=== PATIENT | female | born 1960 | race Caucasian/White ===

== ENCOUNTER 2017-11-01 13:21 | Observation (INO) | payer BC ==
[~2017-11-01] VITALS: Ht 166.4 cm; Wt 75.9 kg
[2017-11-01 13:52] VITALS: BP 155/89; PULSE 82; RESP 16; TEMP 97.8; O2SAT 100
[2017-11-01] MEDS ORDERED: LEVO137T18 PO (14:21)
[2017-11-01] MEDS ORDERED: ASPIRIN 325 MG TAB PO ONE (14:30)
[2017-11-01] MEDS ORDERED: NITROGLYCERIN 0.4 MG SL 25 TABS/BTL SL ONE (14:30)
[2017-11-01] MEDS ORDERED: SODIUM CHLORIDE 0.9% FLUSH 10 ML FLUSH IVF PRN (14:30)
[2017-11-01 14:46] LABS: AUTOMATED NEUTROPHIL # 4.5 TH/MM3 (1.8-7.7); BASOPHIL # 0.1 TH/MM3 (0-0.2); BASOPHIL % 0.8 % (0.0-2.0); EOSINOPHIL # 0.4 TH/MM3 (0-0.4); HEMATOCRIT 41.3 % (35.0-46.0); HEMOGLOBIN 13.7 GM/DL (11.6-15.3); LYMPHOCYTE # 1.9 TH/MM3 (1.0-4.8); MEAN CELL VOLUME 87.5 FL (80.0-100.0); MEAN CORPUSCULAR HGB CONC 33.1 % (32.0-36.0); MEAN PLATELET VOLUME 8.1 FL (7.0-11.0); MONO % 8.5 % (0.0-8.0); MONOCYTE # 0.6 TH/MM3 (0-0.9); NEUT % 60.7 % (16.0-70.0); PLATELET COUNT 331 TH/MM3 (150-450); RED BLOOD COUNT 4.72 MIL/MM3 (4.00-5.30); RED CELL DISTRIBUTION WIDTH 12.4 % (11.6-17.2); WHITE BLOOD COUNT 7.5 TH/MM3 (4.0-11.0)
[2017-11-01 14:51] LABS: CHLORIDE 103 MEQ/L (98-107); SODIUM (NA) 139 MEQ/L (136-145)
[2017-11-01 14:54] LABS: INTERNATIONAL NORMALIZED RATIO 1.1 RATIO; PROTHROMBIN TIME - PATIENT 10.8 SEC (9.8-11.6)
[2017-11-01 14:55] VITALS: BP 115/66; PULSE 78; RESP 16; O2SAT 97
[2017-11-01 14:55] LABS: ALBUMIN 3.9 GM/DL (3.4-5.0); BICARBONATE 29.3 MEQ/L (21.0-32.0); BLOOD UREA NITROGEN 15 MG/DL (7-18); GLUCOSE,RANDOM 84 MG/DL (74-106); MAGNESIUM 2.3 MG/DL (1.5-2.5)
[2017-11-01 14:57] LABS: ALT (GPT) 23 U/L (10-53); AST (GOT) 19 U/L (15-37)
[2017-11-01 14:58] LABS: CREATININE 0.84 MG/DL (0.50-1.00); GLOMERULAR FILTRATION RATE 70 ML/MIN (>89)
[2017-11-01 14:59] LABS: TOTAL BILIRUBIN ADULT 0.2 MG/DL (0.2-1.0); TOTAL PROTEIN 8.2 GM/DL (6.4-8.2)
[2017-11-01 15:00] LABS: ALKALINE PHOSPHATASE 64 U/L (45-117)
[2017-11-01 15:03] LABS: TROPONIN I LESS THAN 0.02 NG/ML (0.02-0.05)
[2017-11-01] MEDS ORDERED: IOHEXOL 350 MG/ML 10 ML VIAL (for RAD DIAG) IVCONTRAST ONE (15:22)
--- NOTE | 2017-11-01 15:29 | RADRPT ---
EXAM DATE/TIME: 11/01/2017 14:47 [facility] COMPARISON: No previous studies available for comparison. INDICATIONS : Chest pain MEDICAL HISTORY : None. SURGICAL HISTORY : None. ENCOUNTER: Initial ACUITY: 2 days PAIN SCORE: 2/10 LOCATION: Left chest FINDINGS: PA and lateral views of the chest demonstrate the lungs to be symmetrically aerated without evidence of mass, infiltrate or effusion. The cardiomediastinal contours are unremarkable. Osseous structure s are intact. CONCLUSION: 1. No acute cardiopulmonary disease. Anshul Orr MD on November 01, 2017 at 15:27 Board Certified Radiologist. This report was verified electronically.
--- NOTE | 2017-11-01 15:30 | RADRPT ---
EXAM DATE/TIME: 11/01/2017 15:11 [facility] COMPARISON: No previous studies available for comparison. INDICATIONS : Left chest pain x 2 days. IV CONTRAST: 75 cc Omnipaque 350 (iohexol) IV RADIATION DOSE: 10.54 CTDIvol (mGy) MEDICAL HISTORY : None SURGICAL HISTORY : Tubal ligation. ENCOUNTER: Initial ACUITY: 2 days PAIN SCALE: 2/10 LOCATION: Left chest TECHNIQUE: Volumetric scanning of the chest was performed using a pulmonary embolism protocol MIP images were re constructed. Using automated exposure control and adjustment of the mA and/or kV according to patien t size, radiation dose was kept as low as reasonably achievable to obtain optimal diagnostic quality images. DICOM format image data is available electronically for review and comparison. Follow-up recommendations for detected pulmonary nodules are based at a minimum on nodule size and pa tient risk factors according to Fleischner Society Guidelines. FINDINGS: PULMONARY ARTERIES: No filling defects are seen in the pulmonary arteries through the segmental level. LUNGS: There is no consolidation or pneumothorax . No concerning pulmonary nodule is visualized. PLEURAE: There is no pleural thickening or pleural effusion. MEDIASTINUM: There is good visualization of the great vessels of the middle mediastinum. No evidence of mediastin al or hilar adenopathy/mass. MUSCULOSKELETAL: Within normal limits for patient age. CONCLUSION: No evidence of pulmonary embolism Girma Tamez MD on November 01, 2017 at 15:25 Board Certified Radiologist. This report was verified electronically.
--- NOTE | 2017-11-01 16:02 | PD ---
HPI Chief Complaint: Chest Pain Time Seen by Provider: 14:03 Travel History International Travel<30 days: No Contact w/Intl Traveler<30days: No Traveled to known affect area: No History of Present Illness HPI The patient is a 57-year-old female who arrives to the ER with chest pain about 2 days duration which started shortly following arrival here after a drive from [place]. Driving from [place] be here in 1 day. There is a pleuritic component the location is predominantly in the left side of the pain severity is very mild about 2/10 dull quality at baseline which becomes sharp with inspiration. She denies dyspnea on exertion chest pain on exertion. There is some discomfort radiating to the left neck. There is a family history coronary artery disease. No personal history of smoking, hypertension, hyperlipidemia or diabetes is reported. No personal history of coronary artery disease reported. PFSH Past Medical History Medical other: Yes (sinus surgery) Tetanus Vaccination: < 5 Years Influenza Vaccination: No ?: Not Tubal Ligation: Yes Social History Alcohol Use: Yes (4x a week) Tobacco Use: No Allergies-Medications (Allergen,Severity, Reaction): Coded Allergies: No Known Allergies (Unverified , 11/01/17) Reported Meds & Prescriptions Reported Meds & Active Scripts Active Reported Levoxyl (Levothyroxine Sodium) 137 Mcg Tab 137 Mcg PO DAILY Review of Systems Except as stated in HPI: all other systems reviewed are Neg General / Constitutional: No: Fever Eyes: No: Diploplia HENT: No: Headaches Physical Exam Narrative GENERAL: 57-year-old female pleasant well-nourished well-developed no acute distress Vital Signs Date Time Temp Pulse Resp B/P (MAP) Pulse Ox O2 Delivery O2 Flow Rate FiO2 11/01/17 13:52 97.8 82 16 155/89 (111) 100 SKIN: Warm and dry. HEAD: Atraumatic. Normocephalic. EYES: Pupils equal and round. No scleral icterus. No injection or drainage. ENT: No nasal bleeding or discharge. Mucous membranes pink and moist. NECK: Trachea midline. No JVD. CARDIOVASCULAR: Regular rate and rhythm. RESPIRATORY: No accessory muscle use. Clear to auscultation. Breath sounds equal bilaterally. GASTROINTESTINAL: Abdomen soft, non-tender, nondistended. Hepatic and splenic margins not palpable. MUSCULOSKELETAL: Extremities without clubbing, cyanosis, or edema. No obvious deformities. No evidence DVT. NEUROLOGICAL: Awake and alert. No obvious cranial nerve deficits. Motor grossly within normal limits. Five out of 5 muscle strength in the arms and legs. Normal speech. PSYCHIATRIC: Appropriate mood and affect; insight and judgment normal. Data Data Last Documented VS Vital Signs Date Time Temp Pulse Resp B/P (MAP) Pulse Ox O2 Delivery O2 Flow Rate FiO2 11/01/17 13:52 97.8 82 16 155/89 (111) 100 Orders Orders Electrocardiogram (11/01/17 14:20) Ckmb (Isoenzyme) Profile (11/01/17 14:20) Complete Blood Count With Diff (11/01/17 14:20) Comprehensive Metabolic Panel (11/01/17 14:20) Magnesium (Mg) (11/01/17 14:20) Prothrombin Time / Inr (Pt) (11/01/17 14:20) Act Partial Throm Time (Ptt) (11/01/17 14:20) Troponin I (11/01/17 14:20) Lipase (11/01/17 14:20) Ecg Monitoring (11/01/17 14:20) Iv Access Insert/Monitor (11/01/17 14:20) Oximetry (11/01/17 14:20) Oxygen Administration (11/01/17 14:20) Aspirin (Aspirin) (11/01/17 14:30) Sodium Chloride 0.9% Flush (Ns Flush) (11/01/17 14:30) Nitroglycerin Sl (Nitrostat Sl) (11/01/17 14:30) Ct Pulmonary Angiogram (11/01/17 14:20) Chest, Pa & Lat (11/01/17 14:20) Iohexol 350 Inj (Omnipaque 350 Inj) (11/01/17 15:22) Admit Order (Ed Use Only) (11/01/17 ) Hand Rug Braider / Telemetry LORENA.Q8H (11/01/17 15:57) Vital Signs (Adult) Q4H (11/01/17 15:57) Diet Heart Healthy (11/01/17 Dinner) Activity Bed Rest (11/01/17 15:57) Notify Dr: Other (11/01/17 15:57) Labs Laboratory Tests Test 11/01/17 14:32 White Blood Count 7.5 TH/MM3 Red Blood Count 4.72 MIL/MM3 Hemoglobin 13.7 GM/DL Hematocrit 41.3 % Mean Corpuscular Volume 87.5 FL Mean Corpuscular Hemoglobin 29.0 PG Mean Corpuscular Hemoglobin Concent 33.1 % Red Cell Distribution Width 12.4 % Platelet Count 331 TH/MM3 Mean Platelet Volume 8.1 FL Neutrophils (%) (Auto) 60.7 % Lymphocytes (%) (Auto) 25.0 % Monocytes (%) (Auto) 8.5 % Eosinophils (%) (Auto) 5.0 % Basophils (%) (Auto) 0.8 % Neutrophils # (Auto) 4.5 TH/MM3 Lymphocytes # (Auto) 1.9 TH/MM3 Monocytes # (Auto) 0.6 TH/MM3 Eosinophils # (Auto) 0.4 TH/MM3 Basophils # (Auto) 0.1 TH/MM3 CBC Comment DIFF FINAL Differential Comment Prothrombin Time 10.8 SEC Prothromb Time International Ratio 1.1 RATIO Activated Partial Thromboplast Time 27.4 SEC Blood Urea Nitrogen 15 MG/DL Creatinine 0.84 MG/DL Random Glucose 84 MG/DL Total Protein 8.2 GM/DL Albumin 3.9 GM/DL Calcium Level 9.0 MG/DL Magnesium Level 2.3 MG/DL Alkaline Phosphatase 64 U/L Aspartate Amino Transf (AST/SGOT) 19 U/L Alanine Aminotransferase (ALT/SGPT) 23 U/L Total Bilirubin 0.2 MG/DL Sodium Level 139 MEQ/L Potassium Level 4.1 MEQ/L Chloride Level 103 MEQ/L Carbon Dioxide Level 29.3 MEQ/L Anion Gap 7 MEQ/L Estimat Glomerular Filtration Rate 70 ML/MIN Total Creatine Kinase 76 U/L Troponin I LESS THAN 0.02 NG/ML Lipase 236 U/L [facility] Medical Decision Making Medical Screen Exam Complete: Yes Emergency Medical Condition: Yes Differential Diagnosis NSTEMI, unstable angina, coronary vasospasm, PE, PTX, aortic dissection, pericarditis, myocarditis, endocarditis, PNA, esophageal disease, aneurysm, musculoskeletal etiologies, anxiety, cocaine/sympathomimetic abuse Narrative Course CBC & BMP Diagram 11/01/17 14:32 Total Protein 8.2, Albumin 3.9, Calcium Level 9.0, Magnesium Level 2.3, Alkaline Phosphatase 64, Aspartate Amino Transf (AST/SGOT) 19, Alanine Aminotransferase (ALT/SGPT) 23, Total Bilirubin 0.2 Troponin is less than 0.02 EKG: sinus, normal axis/intervals, rate 67, no ischemic injury pattern CXR: No acute process CT chest: no PE Patient will be Sure chest pain center protocol. Discussed with Dr. Roca. Diagnosis Primary Impression: Chest pain Qualified Codes: R07.9 - Chest pain, unspecified Admitting Information Admitting Physician Requests: Observation Tommy Argueta MD Nov 01, 2017 16:02
[2017-11-01] MEDS ORDERED: ACETAMINOPHEN 500 MG CPLT PO PRN (16:15)
[2017-11-01] MEDS ORDERED: SODIUM CHLORIDE 0.9% FLUSH 10 ML FLUSH IV FLUSH PRN (16:15)
[2017-11-01] MEDS ORDERED: ONDANSETRON HCL 4 MG/2 ML VIAL IV PUSH PRN (16:15)
--- NOTE | 2017-11-01 16:29 | HHI.HP ---
HPI Service [facility] Primary Care Physician Non-Staff Admission Diagnosis Chest Pain Diagnoses: (1) Chest pain Chief Complaint: Chest pain Travel History International Travel<30 Days: No Contact w/Intl Traveler <30 Da: No Traveled to Known Affected Are: No History of Present Illness This is a pleasant 57-year-old female patient with a known medical history of hypothyroidism who presented to the ED with complaints of chest pain. Patient states that on Monday her and her were driving down from [place] for a family vacation when dates the pain is located under her left breast, characterized as dull in nature at rest and sharp with movement and deep breathing, pain worsens as well with movement and deep breathing. Patient states the pain is a 2-3 out of 10 on pain scale, constant in nature, denies any associated symptoms such as nausea, vomiting, diaphoresis or shortness of breath, patient denies ever having this pain in the past. Patient denies any known alleviating factors. She did state she took some Advil without relief as well as some antacids. Patient denies any recent trauma to the area. Patient sees a PCP back in [place], with no new recent changes in medicines. 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 Denies any history of CAD or stress testing. Denies current tobacco use. Family medical history significant for brother having an AK at the age of 49 and father having an AK at the age of 55. Review of Systems Constitutional: DENIES: Fatigue, Fever, Chills Eyes: DENIES: Blurred vision, Diplopia Respiratory: DENIES: Cough Cardiovascular: COMPLAINS OF: Chest pain, DENIES: Palpitations Gastrointestinal: DENIES: Abdominal pain, Black stools, Bloody stools, Constipation, Diarrhea, Nausea, Vomiting Musculoskeletal: DENIES: Joint pain Psychiatric: DENIES: Anxiety Except as stated in HPI: all other systems reviewed are Neg Past Family Social History Past Medical History Hypothyroidism Past Surgical History Tubal ligation Unspecified sinus surgery Reported Medications Active Reported Levoxyl (Levothyroxine Sodium) 137 Mcg Tab 137 Mcg PO DAILY Allergies: Coded Allergies: No Known Allergies (Unverified , 11/01/17) Active Ordered Medications Current Medications Medications (Trade) Dose Ordered Sig/Emily Route Start Time Stop Time Status Last Admin (NS Flush) 2 ml UNSCH PRN IVF 11/01/17 14:30 (NS Flush) 2 ml UNSCH PRN IV FLUSH 11/01/17 16:15 (NS Flush) 2 ml BID IV FLUSH 11/01/17 21:00 (Tylenol) 500 mg Q4H PRN PO 11/01/17 16:15 (Zofran Inj) 4 mg Q6H PRN IV PUSH 11/01/17 16:15 Family History Family medical history significant for brother having an AK at the age of 49, paternal medical history significant for AK at the age of 55. Social History Patient denies any current or previous tobacco use. Admits to social alcohol use, denies any illicit drug use. Physical Exam Vital Signs Vital Signs Date Time Temp Pulse Resp B/P (MAP) Pulse Ox O2 Delivery O2 Flow Rate FiO2 11/01/17 13:52 97.8 82 16 155/89 (111) 100 Physical Exam GENERAL: Well-developed, well-nourished patient in NAD. SKIN: Warm and dry. No rash. HEAD: Normocephalic. Atraumatic. EYES: Pupils equal and round. No scleral icterus. No injection or drainage. ENT: No nasal bleeding or discharge. Mucous membranes pink and moist. NECK: Supple. Trachea midline. CARDIOVASCULAR: Regular rate and rhythm. S1, S2 noted. No murmur appreciated. No chest pain to palpation of left chest. RESPIRATORY: No accessory muscle use. Clear to auscultation. Breath sounds equal bilaterally. GASTROINTESTINAL: Abdomen soft, non-tender, nondistended. Normoactive bowel sounds x4. MUSCULOSKELETAL: No obvious deformities. Extremities without clubbing, cyanosis , or edema. NEUROLOGICAL: Awake and alert. No obvious cranial nerve deficits. Motor grossly within normal limits. 5/5 muscle strength in bilateral upper and lower extremities. Normal speech. PSYCHIATRIC: Appropriate mood and affect; insight and judgment normal. Laboratory Laboratory Tests Test 11/01/17 14:32 White Blood Count 7.5 Red Blood Count 4.72 Hemoglobin 13.7 Hematocrit 41.3 Mean Corpuscular Volume 87.5 Mean Corpuscular Hemoglobin 29.0 Mean Corpuscular Hemoglobin Concent 33.1 Red Cell Distribution Width 12.4 Platelet Count 331 Mean Platelet Volume 8.1 Neutrophils (%) (Auto) 60.7 Lymphocytes (%) (Auto) 25.0 Monocytes (%) (Auto) 8.5 Eosinophils (%) (Auto) 5.0 Basophils (%) (Auto) 0.8 Neutrophils # (Auto) 4.5 Lymphocytes # (Auto) 1.9 Monocytes # (Auto) 0.6 Eosinophils # (Auto) 0.4 Basophils # (Auto) 0.1 CBC Comment DIFF FINAL Differential Comment Prothrombin Time 10.8 Prothromb Time International Ratio 1.1 Activated Partial Thromboplast Time 27.4 Blood Urea Nitrogen 15 Creatinine 0.84 Random Glucose 84 Total Protein 8.2 Albumin 3.9 Calcium Level 9.0 Magnesium Level 2.3 Alkaline Phosphatase 64 Aspartate Amino Transf (AST/SGOT) 19 Alanine Aminotransferase (ALT/SGPT) 23 Total Bilirubin 0.2 Sodium Level 139 Potassium Level 4.1 Chloride Level 103 Carbon Dioxide Level 29.3 Anion Gap 7 Estimat Glomerular Filtration Rate 70 Total Creatine Kinase 76 Troponin I LESS THAN 0.02 Lipase 236 Result Diagram: 11/01/17 1432 11/01/17 1432 Imaging Last Impressions Chest X-Ray 11/01/171419 Signed Impressions: Service Date/Time: Wednesday, November 01, 2017 14:47 - CONCLUSION: 1. No acute cardiopulmonary disease. Anshul Orr MD CT Angiography 11/01/171419 Signed Impressions: Service Date/Time: Wednesday, November 01, 2017 15:11 - CONCLUSION: No evidence of pulmonary embolism Girma Tamez MD Septic Shock Reassessment Septic shock perfusion: reassessment completed Caprini VTE Risk Assessment Caprini VTE Risk Assessment: No/Low Risk (score <= 1) Caprini Risk Assessment Model Point Value = 1 Point Value = 2 Point Value = 3 Point Value = 5 Age 41-60 Minor surgery BMI > 25 kg/m2 Swollen legs Varicose veins or History of unexplained or recurrent spontaneous Oral contraceptives or hormone replacement Sepsis (< 1 month) Serious lung disease, including pneumonia (< 1 month) Abnormal pulmonary function Acute myocardial infarction Congestive heart failure (< 1 month) History of inflammatory bowel disease Medical patient at bed rest Age 61-74 Arthroscopic surgery Major open surgery (> 45 min) Laparoscopic surgery (> 45 min) Malignancy Confined to bed (> 72 hours) Immobilizing plaster cast Central venous access Age >= 75 History of VTE Family history of VTE Factor V Leiden Prothrombin [id number] Lupus anticoagulant Anticardiolipin antibodies Elevated serum homocysteine Heparin-induced thrombocytopenia Other congenital or acquired thrombophilia Stroke (< 1 month) Elective arthroplasty Hip, pelvis, or leg fracture Acute spinal cord injury (< 1 month) Prophylaxis Regimen Total Risk Factor Score Risk Level Prophylaxis Regimen 0-1 Low Early ambulation 2 Moderate Order ONE of the following: *Sequential Compression Device (SCD) *Heparin 5000 units SQ BID 3-4 Higher Order ONE of the following medications: *Heparin 5000 units SQ TID *Enoxaparin/Lovenox 40 mg SQ daily (WT < 150 kg, CrCl > 30 mL/min) *Enoxaparin/Lovenox 30 mg SQ daily (WT < 150 kg, CrCl > 10-29 mL/min) *Enoxaparin/Lovenox 30 mg SQ BID (WT < 150 kg, CrCl > 30 mL/min) AND/OR *Sequential Compression Device (SCD) 5 or more Highest Order ONE of the following medications: *Heparin 5000 units SQ TID (Preferred with Epidurals) *Enoxaparin/Lovenox 40 mg SQ daily (WT < 150 kg, CrCl > 30 mL/min) *Enoxaparin/Lovenox 30 mg SQ daily (WT < 150 kg, CrCl > 10-29 mL/min) *Enoxaparin/Lovenox 30 mg SQ BID (WT < 150 kg, CrCl > 30 mL/min) AND *Sequential Compression Device (SCD) Assessment and Plan Problem List: (1) Chest pain ICD Code: R07.9 - Chest pain, unspecified Status: Acute (2) Hypothyroidism ICD Code: E03.9 - Hypothyroidism, unspecified Assessment and Plan This is a pleasant 57-year-old female patient with a known medical history of hypothyroidism who presented to the ED with complaints of chest pain. Chest pain rule out ACS versus musculoskeletal etiology Patient has been admitted under observation to the chest pain center unit. Serial EKGs and serial troponins have been ordered for ruling out ACS purposes. Initial troponin flat. Continue to monitor trend. EKG reviewed showing normal sinus rhythm, controlled heart rate, no ST changes to indicate any ischemia. Continue to follow trend throughout the night. Chest pain is still present with complaint of 2 out of 10 on pain scale , dull in nature. We will give one-time dose of Toradol, stress relief. Blood pressure stable, continue to monitor BP trends. Continue cardiac telemetry, rule out any arrhythmias. Patient was given aspirin and sublingual nitroglycerin in the ED with minimal relief. Supplemental O2 as needed, patient comfortable on room air. CBC and BMP reviewed, essentially unremarkable. Patient states that her lipids were checked last year and were reportedly unremarkable. Will defer to PCP. Chest x-ray reviewed showing no acute cardiopulmonary disease. CTA also reviewed showing no evidence of PE. Patient will be monitored overnight. Will allow to eat heart healthy diet. N.p.o. after midnight. If ACS is ruled out overnight patient will undergo a cardiac treadmill stress test to further rule out any ischemia. Patient is stable at this time and agreeable to the plan. Hypothyroidism: Continue home levothyroxine. DVT prophylaxis: SCDs. Problem Qualifiers (1) Chest pain: Qualified Codes: R07.9 - Chest pain, unspecified Candelaria Hull Nov 01, 2017 16:29
--- NOTE | 2017-11-01 16:43 | EKG ---
Date Performed: 11/01/2017 Time Performed: 14:03:08 PTAGE: 57 years EKG: Sinus rhythm POSSIBLE LEFT ATRIAL ENLARGEMENT BORDERLINE ECG NO PREVIOUS TRACING DOCTOR: Jakob Puga Interpretating Date/Time 11/01/2017 16:42:24
[2017-11-01 16:58] VITALS: BP 133/75
[2017-11-01 18:00] VITALS: BP 130/84; PULSE 74; RESP 16; TEMP 97.8; O2SAT 96
[2017-11-01 19:04] LABS: TROPONIN I LESS THAN 0.02 NG/ML (0.02-0.05)
[2017-11-01 20:05] VITALS: PULSE 64
[2017-11-01 20:49] VITALS: BP 127/81; PULSE 69; RESP 20; TEMP 96.3; O2SAT 98
[2017-11-01] MEDS: SODIUM CHLORIDE 0.9% FLUSH 10 ML FLUSH IV FLUSH SCH (20:57)
[2017-11-01 21:04] LABS: TROPONIN I LESS THAN 0.02 NG/ML (0.02-0.05)
--- NOTE | 2017-11-01 21:37 | EKG ---
Date Performed: 11/01/2017 Time Performed: 20:32:50 PTAGE: 57 years EKG: Sinus rhythm NORMAL ECG No significant change from prior electrocardiogram. PREVIOUS TRACING : 11/01/2017 17.47 DOCTOR: Jakob Puga Interpretating Date/Time 11/01/2017 21:36:35
--- NOTE | 2017-11-01 21:46 | EKG ---
Date Performed: 11/01/2017 Time Performed: 17:47:34 PTAGE: 57 years EKG: Sinus rhythm NORMAL ECG No significant change from prior electrocardiogram. PREVIOUS TRACING : 11/01/2017 14.03 DOCTOR: Jakob Puga Interpretating Date/Time 11/01/2017 21:44:13
[2017-11-02] VITALS: BP 106/63; PULSE 71; RESP 20; TEMP 96.3; O2SAT 96
[2017-11-02] MEDS ORDERED: LEVOTHYROXINE SODIUM 112 MCG TAB PO SCH (06:00)
[2017-11-02] MEDS ORDERED: LEVOTHYROXINE SODIUM 25 MCG TAB PO SCH (06:00)
[2017-11-02] MEDS: SODIUM CHLORIDE 0.9% FLUSH 10 ML FLUSH IV FLUSH SCH (08:37)
[2017-11-02 08:44] VITALS: BP 117/82; PULSE 77; RESP 14; TEMP 97.3; O2SAT 97
--- NOTE | 2017-11-02 12:19 | HHI.PR ---
Subjective Remarks Follow-up chest pain. Patient seen and examined, no acute events overnight. Chest pain has been pretty consistent overnight, rated at 2 out of 10 on pain scale and dull in nature, worse with deep breathing and activity, slight improvement with NSAID last evening. Treadmill test performed today. No chest pain or discomfort. Images sent over to paralegal specialist medical care evaluation specialist for chest pain center, there is some J-point depression will defer to patient getting a nuclear stress test. Continue to follow. Objective Vitals Vital Signs Date Time Temp Pulse Resp B/P (MAP) Pulse Ox O2 Delivery O2 Flow Rate FiO2 11/02/17 08:44 97.3 77 14 117/82 (94) 97 11/02/17 00:00 96.3 71 20 106/63 (77) 96 11/01/17 20:49 96.3 69 20 127/81 (96) 98 11/01/17 20:05 64 11/01/17 18:00 97.8 74 16 130/84 (99) 96 11/01/17 16:58 69 18 133/75 (94) 11/01/17 14:55 78 16 115/66 (82) 97 Room Air 11/01/17 14:10 97 Room Air 11/01/17 14:10 Room Air 11/01/17 13:52 97.8 82 16 155/89 (111) 100 I/O 11/01/17 11/01/17 11/01/17 11/02/17 11/02/17 11/02/17 07:00 15:00 23:00 07:00 15:00 23:00 Intake Total 420 ml Balance 420 ml Intake Oral 420 ml # Voids 4 # Bowel Movements 1 Result Diagram: 11/01/17 1432 11/01/17 1432 Imaging Last Impressions Chest X-Ray 11/01/171419 Signed Impressions: Service Date/Time: Wednesday, November 01, 2017 14:47 - CONCLUSION: 1. No acute cardiopulmonary disease. Anshul Orr MD CT Angiography 11/01/171419 Signed Impressions: Service Date/Time: Wednesday, November 01, 2017 15:11 - CONCLUSION: No evidence of pulmonary embolism Girma Tamez MD Objective Remarks GENERAL: Well-developed, well-nourished patient in NAD. SKIN: Warm and dry. No rash. HEAD: Normocephalic. Atraumatic. EYES: Pupils equal and round. No scleral icterus. No injection or drainage. ENT: No nasal bleeding or discharge. Mucous membranes pink and moist. NECK: Supple. Trachea midline. CARDIOVASCULAR: Regular rate and rhythm. S1, S2 noted. No murmur appreciated. No chest pain to palpation. RESPIRATORY: No accessory muscle use. Clear to auscultation. Breath sounds equal bilaterally. GASTROINTESTINAL: Abdomen soft, non-tender, nondistended. Normoactive bowel sounds x4. MUSCULOSKELETAL: No obvious deformities. Extremities without clubbing, cyanosis , or edema. NEUROLOGICAL: Awake and alert. No obvious cranial nerve deficits. Motor grossly within normal limits. 5/5 muscle strength in bilateral upper and lower extremities. Normal speech. PSYCHIATRIC: Appropriate mood and affect; insight and judgment normal. A/P Problem List: (1) Chest pain ICD Code: R07.9 - Chest pain, unspecified Status: Acute (2) Hypothyroidism ICD Code: E03.9 - Hypothyroidism, unspecified Assessment and Plan This is a pleasant 57-year-old female patient with a known medical history of hypothyroidism who presented to the ED with complaints of chest pain. Chest pain rule out ACS versus musculoskeletal etiology -Patient has been admitted under observation to the chest pain center unit. -Serial EKGs and serial troponins have been ordered for ruling out ACS purposes. Troponin trend flat. -EKG reviewed showing normal sinus rhythm, controlled heart rate, no ST changes to indicate any ischemia. -Chest pain is still present with complaint of 2 out of 10 on pain scale, dull in nature. Toradol given 1. Minimal relief. -Blood pressure stable, continue to monitor BP trends. Continue cardiac telemetry, no arrhythmias overnight. -Patient was given aspirin and sublingual nitroglycerin in the ED with minimal relief. -Supplemental O2 as needed, patient comfortable on room air. -CBC and BMP reviewed, essentially unremarkable. -Patient states that her lipids were checked last year and were reportedly unremarkable. Will defer to PCP. -Chest x-ray reviewed showing no acute cardiopulmonary disease. CTA also reviewed showing no evidence of PE. Patient underwent a cardiac treadmill stress test to further rule out any ischemia. Images reviewed by paralegal specialist on-call, J-point depression was noted. Will have patient undergo a nuclear stress test. Continue to monitor and follow. Hypothyroidism: Continue home levothyroxine. DVT prophylaxis: SCDs. Discharge Planning Patient underwent cardiac stress test, report reviewed 67% EF low risk category , intact wall motion and thickening without hypokinetic or dyskinetic segments. Normal examination. Patient going to be discharged, encouraged to follow-up with PCP. If symptoms persist or worsen please come back to the ED patient is stable and agreeable to plan. Problem Qualifiers (1) Chest pain: Qualified Codes: R07.9 - Chest pain, unspecified Candelaria Hull Nov 02, 2017 12:19
[2017-11-02 12:34] VITALS: BP 120/82; PULSE 68; RESP 18; TEMP 97.4; O2SAT 98
[2017-11-02] MEDS ORDERED: REGADENOSON INJ 0.4 MG/5 ML SYR IV ONE (13:46)
--- NOTE | 2017-11-02 15:00 | RADRPT ---
EXAM DATE/TIME: 11/02/2017 13:00 [place] COMPARISON: No previous studies available for comparison. INDICATIONS : Chest pain. DOSE: 25.4 mCi Tc99m Myoview at stress. 8.6 mCi Tc99m Myoview at rest. 0.4 mg Lexiscan STRESS SYMPTOMS: Chest pressure, nausea. EJECTION FRACTION: 67% MEDICAL HISTORY : Hypothyroidism. SURGICAL HISTORY : Tubal ligation. ENCOUNTER: Initial ACUITY: 1 day PAIN SCALE: 2/10 LOCATION: Left chest TECHNIQUE: The patient underwent pharmacologic stress with infusion of prescribed dose. Continuous ECG tracing was monitored during stress. Gated SPECT imaging was performed after stress and conventional SPECT i maging was performed at rest. The examination was performed on a SPECT/CT scanner, both attenuation and non-corrected datasets were reviewed. FINDINGS: DISTRIBUTION: The maximum perfused segment at stress is in the lateral wall. PERFUSION STUDY: The pattern of perfusion at stress is within normal limits. GATED STUDY: There is intact wall motion and thickening without hypokinetic or dyskinetic segments. CONCLUSION: Normal examination. RISK CATEGORY: Low (<1% Annual Mortality Rate) Girma Tamez MD on November 02, 2017 at 14:57 Board Certified Radiologist. This report was verified electronically.
--- NOTE | 2017-11-02 15:07 | HHI.DCPOC ---
Discharge Care Plan Diagnosis: (1) Chest pain (2) Hypothyroidism Goals to Promote Your Health * To prevent worsening of your condition and complications * To maintain your health at the optimal level Directions to Meet Your Goals Take your medications as prescribed Follow your dietary instruction Follow activity as directed Keep your appointments as scheduled Take your immunizations and boosters as scheduled If your symptoms worsen call your PCP, if no PCP go to Urgent Care Center or Emergency Room Smoking is Dangerous to Your Health. Avoid second hand smoke Call the 24-hour hour crisis hotline for domestic abuse at [facility] [place] Nov 02, 2017 15:07
--- NOTE | 2017-11-03 11:18 | TR ---
Date Performed: 11/02/2017 Time Performed: 13:31:35 DOCTOR: Jeb Roman DRUG LIST: CLINICAL HISTORY: CHEST PAIN REASON FOR TEST: REASON FOR ENDING: OBSERVATION: CONCLUSION: Lexiscan stress test was performed under standard four minute protocol. Radionuclide was injected one minute prior to ending the test. No electrocardiographic abormalities were present to suggest ischemia. Nuclear imaging and interpretation are pending. COMMENTS:
--- NOTE | 2017-11-03 11:20 | TR ---
Date Performed: 11/02/2017 Time Performed: 09:01:10 DOCTOR: Jeb Roman DRUG LIST: CLINICAL HISTORY: CHEST PAIN REASON FOR TEST: REASON FOR ENDING: OBSERVATION: CONCLUSION: Jose Cruz protocol complete, test stopped secondary to reaching target heart rate. No re producible chest pain or discomfort. Good exercise tolerance. Good BP response. Maximum UF=451 Target HR Xjorllkd=675.0% Maximum VJ=623/76 Total Exercise Time=6:23 COMMENTS: EKG shows J-point depression but with upsloping ST segments which are non-nondiagnosti c. Further evaluation recommended
== END 2017-11-02 15:31 | disposition home or self-care (01) ==
LOC: PHED 13:21 → PHEDA 15:57 → PH3A 16:49
PROVIDERS: ADMIT Hospitalist; ATTEND Hospitalist
DX: R07.9 Chest pain, unspecified (principal); E03.9 Hypothyroidism, unspecified
CPT/HCPCS: 71046; 71275; 78452; 80053; 82550; 83690; 83735; 84484; 85025; 85610; 85730; 93005; 93017; 99285; A9502; G0378; J2785; Q9967